=== PATIENT | female | born 1945 | race Two or more races ===

== ENCOUNTER 2022-01-29 18:59 | Emergency (ER) | payer SELFPAY ==
[~2022-01-29] VITALS: Ht 175.3 cm; Wt 78.0 kg
[2022-01-29 19:01] VITALS: BP 175/83
== END 2022-01-29 21:01 | disposition left against medical advice (07) ==
LOC: ER 18:59
DX: Z53.21 Procedure and treatment not carried out due to patient leaving prior to being seen by health care provider (principal)